=== PATIENT | male | born 1940 | race Asian ===

== ENCOUNTER 2019-07-13 10:49 | Outpatient (CLI) | payer BC, SELFPAY ==
--- NOTE | ~2019-07-13 | CT_ITS ---
EXAMINATION:CT chest wo con DATE: 07/13/2019 11:59 INDICATION: Solitary pulmonary nodule. TECHNIQUE: Computed tomography (CT) of the chest was performed without intravenous contrast. Automate d exposure control and iterative reconstruction technique were employed. The dose-length product (DLP ) was 218.49 mGy-cm. COMPARISON: None. FINDINGS: There is mild scarring at the lung apices. There is moderate emphysema. Calcified pulmonary nodules and calcified hilar and mediastinal lymph nodes are consistent with old granulomatous diseas e. There is a 6 mm nodule in right upper lobe. There is a 5 mm nodule at right major fissure. There i s bronchiectasis in superior lingula. There is a 5 mm nodule in lingula. No pleural effusion. The hea rt size is normal. No pericardial effusion. There are cysts in the liver measuring up to 2.9 cm. Ther e is mild thoracic spondylosis. IMPRESSION: 1. Pulmonary nodules measuring up to 6 mm, probably benign. Noncontrast low-dose chest CT is recommen ded in 6 months. 2. Moderate emphysema. Reviewed, dictated and finalized at location A. O/VIDEO ENGINEER IMPRESSION: 1. Pulmonary nodules measuring up to 6 mm, probably benign. Noncontrast low-dos e chest CT is recommended in 6 months. 2. Moderate emphysema.
== END 2019-07-13 10:50 | disposition home or self-care (01) ==
PROVIDERS: PCP Internal Medicine; Visit Provider Internal Medicine
DX: R91.8 Other nonspecific abnormal finding of lung field (principal); J43.9 Emphysema, unspecified
CPT/HCPCS: 71250

== ENCOUNTER 2020-02-12 08:08 | Outpatient (CLI) | payer BC, SELFPAY ==
--- NOTE | ~2020-02-12 | CT_ITS ---
EXAMINATION: CT abdomen pelvis w con DATE: 02/12/2020 08:50 INDICATION: Intra-abdominal and pelvic swelling, mass, and lump, unspecified. TECHNIQUE: Computed tomography (CT) of the abdomen and pelvis was performed with 100 mL Omnipaque 350 intravenous contrast. Automated exposure control and iterative reconstruction technique were employe d. The dose-length product was 739.63 mGy-cm. COMPARISON: Chest CT 07/13/2019 FINDINGS: The visualized portions of the lung bases demonstrate mild atelectasis. The heart size is n ormal. No pericardial effusion. There is diffuse hepatic steatosis. There are cysts in the liver mervat uring up to 3.1 cm. The gallbladder, spleen, pancreas, and adrenal glands are normal. There is cortic al thinning of the kidneys. There is a 10 mm cyst in right kidney. There is a left inguinal hernia co ntaining fat. The prostate is mildly enlarged. There are no dilated loops of bowel. The appendix is n ormal. There is a left-sided inferior vena cava. There are no pathologically enlarged lymph nodes. Th ere is no free intraperitoneal fluid. There is moderate lumbar spondylosis. IMPRESSION: 1. Diffuse hepatic steatosis. 2. Left inguinal hernia containing fat. Reviewed, dictated and finalized at location A.
--- NOTE | ~2020-02-12 | CT_ITS ---
EXAMINATION:CT chest wo con DATE: 02/12/2020 08:50 INDICATION: Lung nodule. TECHNIQUE: Computed tomography (CT) of the chest was performed without intravenous contrast. Automate d exposure control and iterative reconstruction technique were employed. The dose-length product (DLP ) was 228.51 mGy-cm. COMPARISON: Chest CT 07/13/2019 FINDINGS: There is moderate emphysema. Calcified pulmonary nodules and calcified hilar and mediastina l lymph nodes are consistent with old granulomatous disease. There are calcified pleural plaques bila terally, which may be seen with asbestosis exposure. There are a few scattered nodules in the lungs m easuring up to 6 mm in right upper lobe. There is mild atelectasis bilaterally. No pleural effusion. There is a 14 mm nodule in right thyroid lobe, likely not clinically significant. There is stable mil d mediastinal lymphadenopathy, likely reactive. There is diffuse hepatic steatosis. There are bridgin g endplate osteophytes at multiple levels in the spine, consistent with diffuse idiopathic skeletal h yperostosis (DISH). IMPRESSION: 1. Stable pulmonary nodules measuring up to 6 mm, likely benign. Consider noncontrast low-dose chest CT in one year. 2. Stable mild mediastinal lymphadenopathy, likely reactive. 3. Moderate emphysema. Reviewed, dictated and finalized at location A. IMPRESSION: 1. Stable pulmonary nodules measuring up to 6 mm, likely benign. Consider nonco ntrast low-dose chest CT in one year. 2. Stable mild mediastinal lymphadenopathy, likely reactive. 3. Moderate emphysema.
[2020-02-12 08:42] LABS: Estimated Glomerular Filt Rate 58
== END 2020-02-12 08:09 | disposition home or self-care (01) ==
LOC: ANHIMG 08:09
PROVIDERS: PCP Internal Medicine; Visit Provider Internal Medicine
DX: R91.8 Other nonspecific abnormal finding of lung field (principal); J43.9 Emphysema, unspecified; K76.0 Fatty (change of) liver, not elsewhere classified; K40.90 Unilateral inguinal hernia, without obstruction or gangrene, not specified as recurrent
CPT/HCPCS: 71250; 74177; Q9967

== ENCOUNTER 2021-03-07 09:13 | Outpatient (CLI) | payer BC, MEDICAID, SELFPAY ==
--- NOTE | ~2021-03-07 | CT_ITS ---
EXAMINATION: CT diagnostic chest wo con DATE: 03/07/2021 09:36 INDICATION: Solitary pulmonary nodule TECHNIQUE: Computed tomography (CT) of the chest was performed without intravenous contrast. The dose -length product (DLP) was 99.66 mGy-cm. Automated exposure control and iterative reconstruction techn ique were employed. COMPARISON: 02/12/2020, 07/13/2019 FINDINGS: There is moderate emphysema. Again noted are stable pulmonary nodules, measuring up to 6 mm in the right upper lobe, most consistent with old granulomatous disease. There is mild atelectasis. Lungs are free of focal airspace opacities. Calcified pleural plaques are seen which can be seen in t he setting of prior asbestos exposure. There is no pleural effusion or pneumothorax. The heart size i s normal. Chronic mild mediastinal lymphadenopathy is unchanged and likely reactive Calcified pulmona ry nodules and calcified left hilar and mediastinal lymph nodes are consistent with old granulomatous disease. There are bridging osteophytes at multiple levels in the spine, consistent with diffuse idi opathic skeletal hyperostosis (DISH). IMPRESSION: 1. Stable pulmonary nodules, most consistent with old granulomatous disease. 2. Moderate emphysema. Reviewed, dictated and finalized at location A.
== END 2021-03-07 09:14 | disposition home or self-care (01) ==
LOC: ANHIMG 09:17
PROVIDERS: PCP Internal Medicine; Visit Provider Internal Medicine
DX: R91.1 Solitary pulmonary nodule (principal); J43.9 Emphysema, unspecified
CPT/HCPCS: 71250

== ENCOUNTER 2021-12-04 02:48 | Day surgery (SDC) | payer MEDICAID, SELFPAY ==
[2021-11-22 08:23] VITALS: BMI 28.8
[2021-12-04 10:10] VITALS: BP 132/78; PULSE 84; RESP 20; TEMP 36.3; O2SAT 96; BMI 27.8
--- NOTE | 2021-12-04 10:12 | WPDHPUPDATE1 ---
History and Physical Update Update Date/Time: 12/04/21 10:12 History and Physical has been reviewed, including an updated exam of the patient. There are NO changes in the patient's condition. Risks, benefits, and alternatives have been discussed and questions answered. Patient agrees to proceed with procedure.
--- NOTE | 2021-12-04 10:12 | SUR.PREOP ---
daughter at bedside to translate. pt denies questions about consent.
[2021-12-04] MEDS: LACTATED RINGERS 1,000 ML 150 ML IV CONT (10:20)
[2021-12-04 10:24] LABS: Glucose Point of Care 97 mg/dl (65-105)
--- NOTE | 2021-12-04 10:45 | P.PNAN_ITS ---
Anes - Initial Pre Proc Eval Procedure: Operation Date: 12/04/21 11:00 Proposed Procedures p Colonoscopy - Ajay Ibarra MD Date/Time: 12/04/21 10:45 Surgeon: Ajay Ibarra MD Pre Op Diagnosis: change in bowel habits Patient Data Age: 81 Gender: M Height: 1.73 m Weight: 83 kg Last Vital Signs Temp 97.3 F L 12/04/21 10:10 Pulse 84 12/04/21 10:10 Resp 20 12/04/21 10:10 BP 132/78 12/04/21 10:10 Pulse Ox 96 12/04/21 10:10 O2 Del Method Room Air 12/04/21 10:10 Allergies Allergy/AdvReac Type Severity Reaction Status Date / Time Sulfa (Sulfonamide Allergy Severe Rash Verified 12/04/21 10:09 Antibiotics) Home Medications Medication Instructions Recorded Confirmed Type albuterol sulfate 90 mcg/actuation 1 inh inhalation Q4H PRN shortness 03/09/21 11/22/21 Rx aerosol inhaler of breath or wheezing #8.5 grams rosuvastatin 5 mg tablet (Crestor) 5 mg PO DAILY #90 tabs 03/09/21 11/22/21 Rx metformin 500 mg tablet,extended 500 mg PO BID #60 tabs 03/14/21 11/22/21 Rx release 24 hr alprazolam 1 mg tablet 1 mg PO DAILY #30 tabs 06/05/21 11/22/21 Rx peg 3350-electrolytes 236 240 ml PO Q10M #4,000 mL 11/17/21 11/22/21 Rx gram-22.74 gram-6.74 gram-5.86 gram solution (Golytely) Laboratory Tests 12/04/21 10:18 POC Capillary Glucose 97 mg/dl mg/dl (65-105) Patient hx anesthesia problems: none Family hx anesthesia problems: none Results Review: All pre-operative results and documents have been reviewed as part of the pre- operative evaluation. [facility] Social History Social History (Updated 03/09/21 @ 11:03 by Fernanda Lockett) Smoking packs per day: 1 Smoking cigarettes per day: 20.0 Years smoked: 20 Smoking pack-years: 20.00 Smoking status: Former smoker Tobacco type: cigarettes Smoking end date: 05/22/00 Alcohol intake: never Substance use: never Substance use type: does not use Living arrangements: with family Spiritual care concerns: No Anes - Eval Final PreProcedure Day of Procedure 12/04/21 10:45 Patient weight: normal Heart: regular rate and rhythm Lungs: clear to auscultation Airway: Mallampati scale class II Neurological: alert and oriented Last oral intake: >/= 8 hours ASA classification: III Emergent: no Anesthetic plan: proceed Anesthesia type and monitoring: general GIVS and standard monitoring Results Review: All pre-operative results and documents have been reviewed as part of the pre-operative evaluation. Informed Consent: The patient's anesthetic plan and its attendant risks and benefits were discussed with the patient/family/POA. Questions were solicited and answers provided to the satisfaction of the patient/family/POA.
[2021-12-04 11:08] VITALS: BP 91/49; PULSE 71; RESP 17; O2SAT 95
[2021-12-04 11:18] VITALS: BP 95/57; PULSE 73; RESP 20; O2SAT 97
[2021-12-04 11:27] VITALS: BP 116/77; PULSE 76; RESP 19; O2SAT 99
== END 2021-12-04 11:36 | disposition home or self-care (01) ==
PROVIDERS: PCP Family Medicine; Visit Provider Internal Medicine Gastroenterology
PROC: 0DJD8ZZ Inspection of Lower Intestinal Tract, Via Natural or Artificial Opening Endoscopic (ICD-10-PCS; CPT 45378; principal; 2021-12-04 11:00)
DX: R19.5 Other fecal abnormalities (principal); K64.8 Other hemorrhoids; Z79.84 Long term (current) use of oral hypoglycemic drugs; Z79.51 Long term (current) use of inhaled steroids; Z87.891 Personal history of nicotine dependence
CPT/HCPCS: 45378; 82948; J2704; J7120

== ENCOUNTER 2022-03-20 13:54 | Outpatient (CLI) | payer MEDICAID, SELFPAY ==
--- NOTE | ~2022-03-20 | CT_ITS ---
EXAMINATION: CT abdomen pelvis wo con DATE: 03/20/2022 14:17 INDICATION: Abdominal wall mass TECHNIQUE: Computed tomography (CT) of the abdomen and pelvis was performed without intravenous contr ast. The dose-length product (DLP) was 592.64 mGy-cm. Automated exposure control and iterative recons truction technique were employed. COMPARISON: 02/12/2020 FINDINGS: Respiratory motion artifact slightly limits the examination. Minimal dependent atelectasis is present in the lung bases. The heart size is normal. Cysts of the liver measure up to 2.9 cm. Punc burrows calcifications in an otherwise normal spleen likely represent healed granulomatous disease. The gallbladder is decompressed. The pancreas, adrenal glands, and kidneys are unremarkable. No pathologi kee enlarged abdominal or pelvic lymph nodes are identified. There is no free intraperitoneal gas o r evidence of bowel obstruction. There is a left inguinal hernia containing fat. There is severe lumb ar spondylosis. IMPRESSION: 1. Left inguinal hernia containing fat. Reviewed, dictated and finalized at location A.
== END 2022-03-20 13:55 | disposition home or self-care (01) ==
LOC: ANHIMG 13:59
PROVIDERS: PCP Family Medicine; Visit Provider Family Medicine
DX: K40.90 Unilateral inguinal hernia, without obstruction or gangrene, not specified as recurrent (principal)
CPT/HCPCS: 74176

== ENCOUNTER 2022-07-04 08:38 | Outpatient (CLI) | payer MEDICAID, SELFPAY ==
--- NOTE | ~2022-07-04 | US_ITS ---
Abdominal Sonogram: Real-time sonographic imaging of the abdomen was performed. Clinical History: Right upper quadrant pain Findings: The liver appears echogenic, with no evidence of solid mass lesion or bile duct dilatation . Several hepatic cysts are present, largest measuring 3 cm in diameter. Main portal vein demonstrate s normal direction of flow. The spleen is normal in size without evidence of focal lesion. The gallb ladder is well distended, and appears normal with no evidence of gallstone or wall thickening. The co mmon bile duct measures 5 mm. The visualized pancreas, aorta, and IVC are unremarkable. The right k idney measures 9.9 cm in length and the left kidney measures 10.1 cm. There is no hydronephrosis or renal calculus. Impression: Diffuse fatty infiltration of liver. Hepatic cysts, as noted above. Reviewed, dictated and finalized at location . [employer] Impression: Diffuse fatty infiltration of liver. Hepatic cysts, as noted above.
== END 2022-07-04 08:39 | disposition home or self-care (01) ==
PROVIDERS: PCP Family Medicine; Visit Provider Family Medicine
DX: K76.0 Fatty (change of) liver, not elsewhere classified (principal); K76.89 Other specified diseases of liver
CPT/HCPCS: 76700

== ENCOUNTER 2024-04-27 08:00 | Outpatient (RCR) | payer OTHER, SELFPAY ==
--- NOTE | 2024-04-02 11:37 | OPREHPOC ---
Outpatient Therapy Plan of Care This is a Multidisciplinary Plan of Care that may contain components documented by all disciplines (PT, OT, and ST.) PT Problem 1 PT Problem #1 Knowledge Deficit PT Goal 1 Goal / Goal Update Mcdowell with HEP Target Visit 4 PT Goal 2 Goal / Goal Update Patient will report 50% improvement in morning mobility supine to sit from bed Target Visit 4 PT Problem 2 PT Problem #2 Impaired Range of Motion PT Goal 1 Goal / Goal Update Improve dora hip abduction to 40 degrees to reduce hip mobility restriction limiting Target Visit 4 PT Problem 3 PT Problem #3 Impaired Strength PT Goal 1 Goal / Goal Update Improve dora hip abduction strength to 4/5 to improve stabilization of pelvis with ADLs Target Visit 4
--- NOTE | 2024-04-02 11:37 | PTOPEVAL1 ---
Assessment and note entered by Bijan Flor, PT Evaluation Information Assessment Status Evaluation Diagnosis G89.29, SI joint pain ICD-10 Condition Codes (PT) Pain in low back M54.50 Onset 2018 Subjective Information Patient daughter present to help with subjective history. Reports that he is not feeling stable at this time but denies falls. Denies pain down the legs. Feel she is losing strength in his legs which is progressing. He gets pain when twisting or sleeping on his back at this time. Has trouble getting going in the morning. Majority of his pain is localize across low back and in tailbone. Reported Pain Level Pain Score 5: Self Report Assessment PT Clinical Summary Patient presents with signs and symptoms consistent with lumbar stenosis and SI joint dysfunction. Patient pain is on radicular at this time and he shows poor hip mobility in combination with core and hip weakness. Will benefit form skilled therapy to address these deficits and build up a solid exercise program to reduce pain with ADL function. Plan of Care Interventions Gait Training,Hot Pack/Cold Pack,Manual Therapy, Neuro Re-education,Therapeutic Activities, Therapeutic Exercise PT Services Indicated Yes Treatment Frequency and 1x/week for 4 visits Duration These treatments will address the objective and functional deficits as defined above. The patient will be advanced safely and appropriately in order for the patient to progress towards his/her prior level of function. Additional exercises will be introduced and as well as a comprehensive home exercise program upon discharge, if needed, ?to ensure carryover of functional gains achieved in the clinic. This treatment plan has been reviewed and agreement upon by the patient.
--- NOTE | 2024-04-27 09:48 | PTOPDC ---
Assessment and note entered by Darlin Pollack, PT Discharge Report Assessment Status Discharge Diagnosis G89.29, SI joint pain ICD-10 Condition Codes (PT) Pain in low back M54.50 Onset 2018 Subjective Information daughter translated for pt pt feels that the therapy has helped, is more comfortable; changing positions is better-- reduced pain with lying down to sit and standing; after doing the exercises, has some soreness of butt and hips; he has been walking every day; agrees to be finished with therapy today and continue with the exercises at home and walking for fitness. Reported Pain Level Pain Score Self Report Additional Pain Score Comments pain range has been 0-5/10 in the past week; is better with lying down to sit to standing; Assessment PT Clinical Summary Malachi has received 4 PT sessions. Compared to the initial evaluation: pain rating from 2-6/10 to 0-5/10; self assessment Oswestry rating from 36 to 34% limitation in activity level increase strength of trunk and hips to 4/5 and hip abduction ROM increased; education completed for HEP. The goals were achieved. Discharge PT. He is to continue with his HEP and increase activity level as tolerated. Plan of Care PT Services Indicated No
== END 2024-04-27 16:45 | disposition home or self-care (01) ==
LOC: ANHPT 08:00
PROVIDERS: PCP Family Medicine; Visit Provider Family Medicine
DX: M54.50 Low back pain, unspecified (principal); G89.29 Other chronic pain
CPT/HCPCS: 97110; 97140; 97161; 97530